=== PATIENT | male | born 1955 | race African-American/Black ===

== ENCOUNTER 2017-08-22 08:29 | Day surgery (SDC) | payer BC, OTHER ==
[~2017-08-22 08:29] MED LIST: Cefuroxime 10 MG/ML SYRINGE EYELF SCH; Lidocaine 1% PF 2 ML SDV INJECT SCH; Pilocarpine 4% Ophth Soln 15 ML Bot EYELF SCH
[2017-08-22] MEDS: Polymyxin B/Trimethoprim 10 ML Bottle EYELF SCH ×3 (09:13→10:58)
[2017-08-22] MEDS: Brimonidine 0.2% Ophth Soln 5 ML Bottle EYELF SCH ×3 (09:17→10:58)
[2017-08-22] MEDS: Phenylephrine 2.5% Ophth Soln 2 ML Bot EYELF SCH ×5 (09:24→10:44)
[2017-08-22] MEDS: Tetracaine HCl/PF 0.5% 4 ML Bottle EYELF SCH ×2 (10:25→10:53)
--- NOTE | 2017-08-22 10:39 | PCM.PREANE ---
Preanesthetic Assessment - Anesthesia/Transfusion/Family Hx Anesthesia History: Prior Anesthesia Without Reaction Family History of Anesthesia Reaction: No Transfusion History: No Prior Transfusion(s) Intubation History: Unknown - Review of Systems General: No Symptoms Pulmonary: No Symptoms (SANGITA with CPAP) Cardiovascular: No Symptoms Gastrointestinal: No Symptoms Neurological: No Symptoms Other: Reports: Diabetes - Physical Assessment NPO Status Date: 08/21/17 NPO Status Time: 19:30 Pulse: 67 O2 Sat by Pulse Oximetry: 99 Respiratory Rate: 16 Blood Pressure: 137/71 Temperature: 36.2 C Vital Signs: Last Vital Signs Temp 36.2 C 08/22/17 09:00 Pulse 67 08/22/17 09:00 Resp 16 08/22/17 09:00 BP 137/71 08/22/17 09:00 Pulse Ox 99 08/22/17 09:00 Height: 1.7 m Weight: 106.594 kg ASA Class: 2 Mental Status: Alert & Oriented x3 Airway Class: Mallampati = 2 Dentition: Reports: Normal Dentition, Missing Tooth/Teeth, Caries Thyro-Mental Finger Breadths: 3 Mouth Opening Finger Breadths: 3 ROM/Head Extension: Full Lungs: Clear to Auscultation, Normal Respiratory Effort Cardiovascular: Regular Rate, Regular Rhythm, No Murmurs - Allergies Allergies/Adverse Reactions: Allergies Allergy/AdvReac Type Severity Reaction Status Date / Time zinc Allergy Swelling Uncoded 08/21/17 14:30 - Anesthesia Plan Pre-Op Medication Ordered: None - Acknowledgements Anesthesia Type Planned: MAC Pt an Appropriate Candidate for the Planned Anesthesia: Yes Alternatives and Risks of Anesthesia Discussed w Pt/Guardian: Yes Pt/Guardian Understands and Agrees with Anesthesia Plan: Yes PreAnesthesia Questionnaire Cardiovascular History: Reports: High Cholesterol Endocrine/Metabolic History: Reports: Diabetes, Type II - SUBSTANCE USE Smoking Status *Q: Never Smoker Second Hand Smoke Exposure: No - HOME MEDS Home Medications: Home Meds Aspirin 81 mg PO DAILY 08/21/17 [History] Canagliflozin [Invokana] 100 mg PO DAILY 08/21/17 [History] Fish Oil/[place]-3 Fatty Acids [Fish Oil 1,000 MG] 1,000 mg PO DAILY 08/21/17 [ History] Glimepiride [Amaryl] 2 mg PO DAILY 08/21/17 [History] Meloxicam 15 mg PO DAILY 08/21/17 [History] Multivitamin [Daily Ana Maria] 1 tab PO DAILY 08/21/17 [History] atorvaSTATin [Lipitor] 10 mg PO DAILY 08/21/17 [History] metFORMIN HCl [Metformin HCl] 1,000 mg PO BID 08/21/17 [History] - CURRENT (IN HOUSE) MEDS Current Meds: Current Medications Brimonidine Tartrate (Alphagan 0.2% Ophth Soln) 0 ml EYELF TID SIMONE Last Admin: 08/22/17 10:01 Dose: 1 drop Cefuroxime Sodium (Zinacef) 0 mg EYELF ASDIRECTED SIMONE Lidocaine HCl (Xylocaine-Mpf 1%) 10 ml INJECT ASDIRECTED SIMONE Phenylephrine HCl (Tyrone-Synephrine 2.5% Ophth Soln) 0 ml EYELF ASDIRECTED SIMONE Last Admin: 08/22/17 10:08 Dose: 1 drop Polymyxin/Trimethoprim Sulfate (Polytrim Ophth Soln) 0 ml EYELF ASDIRECTED SIMONE Last Admin: 08/22/17 09:55 Dose: 1 drop Tetracaine HCl (Tetracaine 0.5% Steri-Unit Renetta) 0 ml EYELF ASDIRECTED SIMONE Last Admin: 08/22/17 10:25 Dose: 1 drop Tropicamide (Mydriacyl 1% Ophth Soln) 0 ml EYELF ASDIRECTED SIMONE Stop: 08/25/17 06:01 Last Admin: 08/22/17 10:14 Dose: 1 drop Discontinued Medications Pilocarpine HCl (Pilocar 4% Ophth Soln) 0 ml EYELF ASDIRECTED SIMONE Stop: 08/22/17 06:01
--- NOTE | 2017-08-22 10:59 | PCM48HPAN ---
Post Anesthesia Note - EVALUATION WITHIN 48HRS OF ANESTHETIC Vital Signs in Normal Range: Yes Patient Participated in Evaluation: Yes Respiratory Function Stable: Yes Airway Patent: Yes Cardiovascular Function Stable: Yes Hydration Status Stable: Yes Pain Control Satisfactory: Yes Nausea and Vomiting Control Satisfactory: Yes Mental Status Recovered: Yes
[2017-08-22 11:12] VITALS: BP 110/78
== END 2017-08-22 11:11 | disposition home or self-care (01) ==
LOC: JD.SDS 08:29
PROVIDERS: ATTEND Ophthalmology
DX: H25.813 Combined forms of age-related cataract, bilateral (principal); E11.9 Type 2 diabetes mellitus without complications; E78.00 Pure hypercholesterolemia, unspecified; Z90.49 Acquired absence of other specified parts of digestive tract; Z79.4 Long term (current) use of insulin; Z79.82 Long term (current) use of aspirin; Z79.899 Other long term (current) drug therapy; Z79.84 Long term (current) use of oral hypoglycemic drugs
CPT/HCPCS: 66984; C1780; J0697; A9270-GY

== ENCOUNTER 2017-09-19 07:13 | Day surgery (SDC) | payer BC, OTHER ==
[~2017-09-19 07:13] MED LIST changes: -Cefuroxime 10 MG/ML SYRINGE EYELF SCH; +Cefuroxime 10 MG/ML SYRINGE EYERT SCH; -Pilocarpine 4% Ophth Soln 15 ML Bot EYELF SCH; +Pilocarpine 4% Ophth Soln 15 ML Bot EYERT SCH
[2017-09-19] MEDS: Polymyxin B/Trimethoprim 10 ML Bottle EYERT SCH ×3 (07:26→08:53)
[2017-09-19] MEDS: Brimonidine 0.2% Ophth Soln 5 ML Bottle EYERT SCH ×3 (07:31→08:53)
--- NOTE | 2017-09-19 07:33 | PCM.PREANE ---
Preanesthetic Assessment - Anesthesia/Transfusion/Family Hx Anesthesia History: Prior Anesthesia Without Reaction (some nausea) Family History of Anesthesia Reaction: No Transfusion History: No Prior Transfusion(s) Intubation History: Unknown - Review of Systems General: No Symptoms Pulmonary: No Symptoms Cardiovascular: No Symptoms Gastrointestinal: No Symptoms Neurological: No Symptoms Other: Reports: Diabetes - Physical Assessment NPO Status Date: 09/18/17 NPO Status Time: 21:15 Pulse: 72 O2 Sat by Pulse Oximetry: 98 Respiratory Rate: 16 Blood Pressure: 130/75 Temperature: 97.4 F Height: 5 ft 8 in Weight: 107 kg ASA Class: 2 Mental Status: Alert & Oriented x3 Airway Class: Mallampati = 1 Dentition: Reports: Dentures (upper plate) Thyro-Mental Finger Breadths: 3 Mouth Opening Finger Breadths: 3 ROM/Head Extension: Full Lungs: Clear to Auscultation, Normal Respiratory Effort Cardiovascular: Regular Rate, Regular Rhythm - Lab Values: FBS this AM 160 at 0733 - Allergies Allergies/Adverse Reactions: Allergies Allergy/AdvReac Type Severity Reaction Status Date / Time zinc Allergy Swelling Uncoded 09/18/17 14:19 - Blood Blood Available: No - Acknowledgements Anesthesia Type Planned: MAC Pt an Appropriate Candidate for the Planned Anesthesia: Yes Alternatives and Risks of Anesthesia Discussed w Pt/Guardian: Yes Pt/Guardian Understands and Agrees with Anesthesia Plan: Yes PreAnesthesia Questionnaire Cardiovascular History: Reports: High Cholesterol Respiratory History: Reports: Sleep Apnea Endocrine/Metabolic History: Reports: Diabetes, Type II - Past Surgical History HEENT Surgical History: Reports: Cataract Surgery GI Surgical History: Reports: Cholecystectomy Musculoskeletal Surgical History: Reports: Carpal Tunnel, Shoulder Surgery - SUBSTANCE USE Smoking Status *Q: Never Smoker Tobacco Use Within Last Twelve Months: No Second Hand Smoke Exposure: Yes Days Per Week of Alcohol Use: 1 Number of Drinks Per Day: 1 Total Drinks Per Week: 1 Recreational Drug Use History: Yes - HOME MEDS Home Medications: Home Meds Aspirin 81 mg PO DAILY 08/21/17 [History] Canagliflozin [Invokana] 100 mg PO DAILY 08/21/17 [History] Fish Oil/[place]-3 Fatty Acids [Fish Oil 1,000 MG] 1,000 mg PO DAILY 08/21/17 [ History] Glimepiride [Amaryl] 2 mg PO DAILY 08/21/17 [History] Meloxicam 15 mg PO DAILY 08/21/17 [History] Multivitamin [Daily Ana Maria] 1 tab PO DAILY 08/21/17 [History] atorvaSTATin [Lipitor] 10 mg PO DAILY 08/21/17 [History] metFORMIN HCl [Metformin HCl] 1,000 mg PO BID 08/21/17 [History] - CURRENT (IN HOUSE) MEDS Current Meds: Current Medications Brimonidine Tartrate (Alphagan 0.2% Oph Soln) 0 ml EYERT ASDIRECTED SIMONE Stop: 09/19/17 16:00 Cefuroxime Sodium (Zinacef) 0 mg EYERT ASDIRECTED SIMONE Stop: 09/19/17 18:00 Lidocaine HCl (Xylocaine-Mpf 1%) 1 ml INJECT ASDIRECTED SIMONE Stop: 09/19/17 18:00 Phenylephrine HCl (Tyrone-Synephrine 2.5% Ophth Soln) 0 ml EYERT ASDIRECTED SIMONE Stop: 09/19/17 16:00 Pilocarpine HCl (Pilocar 4% Ophth Soln) 0 ml EYERT ASDIRECTED SIMONE Stop: 09/19/17 16:00 Polymyxin/Trimethoprim Sulfate (Polytrim Ophth Soln) 0 ml EYERT ASDIRECTED SIMONE Stop: 09/19/17 16:00 Tetracaine HCl (Tetracaine 0.5% Steri-Unit Renetta) 0 ml EYERT ASDIRECTED SIMONE Stop: 09/19/17 16:00 Tropicamide (Mydriacyl 1% Oph Soln) 0 ml EYERT ASDIRECTED SIMONE Stop: 09/19/17 16:00
[2017-09-19] MEDS: Phenylephrine 2.5% Ophth Soln 2 ML Bot EYERT SCH ×5 (07:37→08:37)
[2017-09-19] MEDS: Tetracaine HCl/PF 0.5% 4 ML Bottle EYERT SCH ×2 (08:31→10:58)
[2017-09-19 09:05] VITALS: BP 116/78
== END 2017-09-19 09:02 | disposition home or self-care (01) ==
LOC: JD.SDS 07:13
PROVIDERS: ATTEND Ophthalmology
DX: E11.36 Type 2 diabetes mellitus with diabetic cataract (principal); H02.834 Dermatochalasis of left upper eyelid; H02.831 Dermatochalasis of right upper eyelid; H35.363 Drusen (degenerative) of macula, bilateral; H35.3131 Nonexudative age-related macular degeneration, bilateral, early dry stage; G47.30 Sleep apnea, unspecified; E78.00 Pure hypercholesterolemia, unspecified; Z90.49 Acquired absence of other specified parts of digestive tract; Z96.1 Presence of intraocular lens; Z79.82 Long term (current) use of aspirin; Z79.899 Other long term (current) drug therapy; Z79.84 Long term (current) use of oral hypoglycemic drugs; Z98.890 Other specified postprocedural states
CPT/HCPCS: 66984; C1780; J0697; A9270-GY

== ENCOUNTER 2021-10-03 15:21 | Emergency (ER) | payer BC ==
[2021-10-03] MEDS ORDERED: Metoclopramide 10 MG/2 ML SDV IVPUSH ONE (16:13)
[2021-10-03 18:01] VITALS: BP 132/75; PULSE 84
== END 2021-10-03 18:00 | disposition home or self-care (01) ==
LOC: JD.ED 15:21
DX: R42 Dizziness and giddiness (principal); E78.00 Pure hypercholesterolemia, unspecified; E11.9 Type 2 diabetes mellitus without complications; Z79.82 Long term (current) use of aspirin; Z79.899 Other long term (current) drug therapy; Z79.84 Long term (current) use of oral hypoglycemic drugs
CPT/HCPCS: 36415; 70450; 70450-26; 71045; 71045-26; 80053; 83735; 84484; 85025; 93005; 96374; 99284-25; A9270-GY; J2765